=== PATIENT | female | born 1990 | race Caucasian/White ===

== ENCOUNTER 2024-12-10 12:16 | Emergency (ER) | payer BC, SELFPAY ==
--- OUTSIDE RECORDS SUMMARY | 2024-12-10 12:26 | XMS_ITS | Clinical Summary ---
Author Organization [facility] de Address [address] [place] [address] Phone Care Team Providers Care High Pressure Boiler Operator Name Role Phone Estrella Jones MD Primary Care Provider [phone] Allergies Active Allergy Reactions Criticality Noted Date Comments Loratadine Hives High 07/03/2015 Morphine Hives,Itching,Rash High 10/02/2019 Medications FLUoxetine (PROzac) 40 mg capsule Take 40 mg by mouth daily. 08/30/2021 Active multivitamin (DAILY-DAVE) tablet Take 1 Tablet by mouth daily. Active ferrous sulfate 325 mg (65 mg iron) tablet Take 65 mg by mouth daily. Active topiramate (Topamax) 25 mg tabletIndication s:Class 1 obesity due to excess calories with body mass index (BMI) of 33.0 to 33.9 in adult, unspecified whether serious comorbidity present,Dietary iron deficiency without anemia,Status post gastric bypass for obesity,Medicati on management Take 1 Tablet (25 mg) by mouth 2 times daily. 60 Tablet 5 08/08/2024 Active phentermine (ADIPEX P) 37.5 mg tabletIndication s:Dietary iron deficiency without anemia,Intestina l malabsorption, unspecified type Take 1 Tablet (37.5 mg) by mouth daily before breakfast. 30 Tablet 5 08/08/2024 Active Active Problems Problem Noted Date Diagnosed Date Dietary iron deficiency without anemia 3 Gastric bypass status for obesity 03/17/2022 Morbid obesity with body mass index of 40.0-49.9 03/10/2022 Psychological factor affecting physical conditio n 10/05/2021 Other specified eating disorder 10/05/2021 Intractable migraine with aura without status mi grainosus 08/14/2015 Encounters Date Type Department Care Team Description 12/04/2024 External Device Data [facility] ABSTRACTION Provider, Abstract 11/19/2024 External Device Data [facility] ABSTRACTION Provider, Abstract 11/07/2024 External Device Data [facility] ABSTRACTION Provider, Abstract 11/06/2024 External Device Data [facility]STRA[facility] Provider, Abstract 10/22/2024 External Device Data [facility] ABSTRACTION Provider, Abstract from Last 3 Months Social History Tobacco Use Types Packs/Day Years Used Date Smoking Tobacco: Former Tobacco Cessation:Counseling Given: No Alcohol Use Standard Drinks/Week Comments Not Currently 0 (1 standard drink = 0.6 oz pur e alcohol) Comments No Sex and Gender Information Value Date Recorded Sex Assigned at Not on file Legal Sex Female 8:54 AM INSTRUCTOR MILITARY SCIENCE Gender Identity Not on file Sexual Orientation Not on file Last Filed Vital Signs Vital Sign Reading Time Taken Comments Blood Pressure 130/82 08/08/2024 1:13 PM INSTRUCTOR MILITARY [employer]ENCE Pulse 74 08/08/2024 1:13 PM INSTRUCTOR MILITARY SCIENCE Temperature 37 C (98.6 F) 02/05/2024 8:10 AM CDT Respiratory Rate 16 08/08/2024 1:13 PM INSTRUCTOR MILITARY SCIENCE Oxygen Saturation 97% 08/08/2024 1:13 PM INSTRUCTOR MILITARY SCIENCE Inhaled Oxygen Concentration - - Weight 92.1 kg (203 lb) 08/08/2024 1:13 PM INSTRUCTOR MILITARY SCIENCE Height 165.1 cm (5' 5 ) 08/08/2024 1:13 PM INSTRUCTOR MILITARY SCIENCE Body Mass Index 33.78 08/08/2024 1:13 PM INSTRUCTOR MILITARY SCIENCE Plan of Treatment Upcoming Encounters Date Type Department Care Team (Late st Contact Info) Description 02/10/2025 11:00 AM CDT [facility] 1967 [facility] [address] [place] [phone] Td Garcia FNP 1967 [facility] [address] [place] [address] Health Maintenance Due Date Last Done Comments Pre-Diabetes and Diabetes Screening 1988 DTAP/TDAP/TD VACCINES (1 - Tdap) 09/01/2007 HEPATITIS B VACCINES (1 of 3 - 19+ 3-dose series) 09/01/2007 HPV/Cotest (21-29) 2009 CERVICAL CANCER SCREENING 2018 HPV/Cotest (30-65) 2018 PAP SMEAR 2018 INFLUENZA VACCINE (#1) 2024 , 03/30/2018, 06/19/2016, Additional history exists COVID-19 Vaccine (2 - 2023- season) 2024 09/25/2020 HPV VACCINES Aged Out No longer eligi ble based on patient's age to complete this topic Insurance [facility] [id number] [address] [id number] Advance Directives For more information, please contact: [phone] * Full Code (Latest Code Status on File) Date Activated Date Inactivated Comments 03/09/2022 2:37 PM 03/10/2022 12:58 PM * Full Code Date Activated Date Inactivated Comments 03/09/2022 12:03 PM 03/09/2022 2:37 PM * Full Code Date Activated Date Inactivated Comments 03/09/2022 9:07 AM 03/09/2022 12:03 PM Care Teams High Pressure Boiler Operator Relationship Specialty Start Date End Date Estrella Jones MD [address] [place] [address] PCP - General Family Practice 07/03/15
--- OUTSIDE RECORDS SUMMARY | 2024-12-10 12:26 | XMS_ITS | Clinical Summary ---
Author Organization [facility] de Address [address] [place] [address] Phone Care Team Providers Care Curtain Cleaner Name Role Phone Estrella Jones MD Primary Care Provider [phone] Allergies Active Allergy Reactions Criticality Noted Date Comments Loratadine Hives High 07/03/2015 Medications omeprazole (PRILOSEC) 20 mg Capsule, Delayed Release(E.C.) Take 20 mg by mouth daily. Active norgestimate-e thinyl estradiol (ORTHO TRI-CYCLEN) 0.18/0.215/0.2 5 mg-35 mcg (28) tablet Take 1 Tablet by mouth daily. Active rizatriptan (MAXALT) 10 mg Tablet Take 1 Tablet (10 mg) by mouth see administration instructions. 9 Tablet 3 6 Active escitalopram oxalate (LEXAPRO) 20 mg tablet 6 Active topiramate (TOPAMAX) 50 mg tablet Take 1 Tablet (50 mg) by mouth 2 times daily. 60 Tablet 11 6 Active Active Problems Problem Noted Date Diagnosed Date Intractable migraine with aura without status mi grainosus 08/14/2015 Social History Tobacco Use Types Packs/Day Years Used Date Smoking Tobacco: Former Cigarettes Alcohol Use Standard Drinks/Week Comments Not Asked 0 (1 standard drink = 0.6 oz pur e alcohol) Comments No Sex and Gender Information Value Date Recorded Sex Assigned at Not on file Legal Sex Female 2:33 PM ELECTRONIC ENGRAVER Gender Identity Not on file Sexual Orientation Not on file Last Filed Vital Signs Vital Sign Reading Time Taken Comments Blood Pressure 120/77 05/18/2016 10:10 AM ELECTRONIC ENGRAVER Pulse 81 05/18/2016 10:10 AM ELECTRONIC ENGRAVER Temperature - - Respiratory Rate - - Oxygen Saturation - - Inhaled Oxygen Concentration - - Weight 134.7 kg (297 lb) 05/18/2016 10:10 AM ELECTRONIC ENGRAVER Height 165.1 cm (5' 5 ) 05/18/2016 10:10 AM ELECTRONIC ENGRAVER Body Mass Index 49.42 05/18/2016 10:10 AM ELECTRONIC ENGRAVER Plan of Treatment Health Maintenance Due Date Last Done Comments DTAP/TDAP/TD VACCINES (1 - Tdap) 09/01/2007 HEPATITIS B VACCINES (1 of 3 - 19+ 3-dose series) 09/01/2007 HPV/Cotest (21-29) 2009 CERVICAL CANCER SCREENING 2018 HPV/Cotest (30-65) 2018 PAP SMEAR 2018 INFLUENZA VACCINE (#1) 2024 HPV VACCINES Aged Out No longer eligi ble based on patient's age to complete this topic Insurance [address] [place] [id number] [place] [address] Care Teams Curtain Cleaner Relationship Specialty Start Date End Date Estrella Jones MD [address] [place] [address] PCP - General Family Practice 07/03/15
--- OUTSIDE RECORDS SUMMARY | 2024-12-10 12:26 | XMS_ITS | Encounter Summary ---
Author Organization [facility] Address [address] [place] [address] Care Team Providers Care Nurse Practitioner Per Diem Name Role Phone Estrella Jones MD Primary Care Provider [phone] Encounter Details Date Type Department Care Team (Late st Contact Info) Description 12/04/2024 External Device Data [facility] Provider, Abstract NO ADDRESS ON FILE Social History Tobacco Use Types Packs/Day Years Used Date Smoking Tobacco: Former Alcohol Use Standard Drinks/Week Comments Not Currently 0 (1 standard drink = 0.6 oz pur e alcohol) Comments No Sex and Gender Information Value Date Recorded Sex Assigned at Not on file Legal Sex Female 8:54 AM PHYSICAL THERAPIST CLINIC DIRECTOR Gender Identity Not on file Sexual Orientation Not on file documented as of this encounter Plan of Treatment Upcoming Encounters Date Type Department Care Team (Late st Contact Info) Description 02/10/2025 11:00 AM CDT [facility] [address] [place] [phone] Td Garcia FNP 1967 [facility] [address] [place] [phone] documented as of this encounter Visit Diagnoses Not on filedocumented in this encounter Care Teams Nurse Practitioner Per Diem Relationship Specialty Start Date End Date Estrella Jones MD [address] [place] [address] PCP - General Family Practice 07/03/15 documented as of this encounter
--- OUTSIDE RECORDS SUMMARY | 2024-12-10 12:26 | XMS_ITS | Continuity of Care Document ---
Author Organization [facility] [place], Tina, [facility] ([facility]) Address [address] [facility] [place] [address] Assessment No assessment recorded. Plan of Treatment Reminders Order Date Submit Date Provider Last Modified By Organization Details Last Modified Time Details Appointments ACUTE VISIT 025 11:40AM WALK-IN Not available Not available Not available Lab None recorde d. Referral None recorde d. Procedures None recorde d. Surgeries None recorde d. Imaging None recorde d. Medication Orders None recorde d. Patient TargetsNo targets recorded. Patient InstructionsNo instructions recorded. Reason for Referral None Reported. Problems Name Problem SNOMED Code Status Onset Date Resolution Date Notes Provider Name and Address Organization Details Recorded Time Miscarriage 41184697 Active 2022 miscarr iage- Mar 2009; 023 2:40PM by Ramiro Foreman, Office Visit; Promote d; acuity set as *; GIANFRANCO fitzpatrick [facility].L.CMonserrat 5 11:28:38 Depressive disorder 90647242 Active 2023 GIANFRANCO fitzpatrick [facility] L.L.CMonserrat 5 11:28:31 Vaginal fistula finding 009375675 Active 2023 GIANFRANCO fitzpatrick [facility] L.L.CMonserrat 4 08:20:14 Seasonal allergic rhinitis 374606770 Active 2023 GIANFRANCO fitzpatrick [facility], [facility].LMonserratCMonserrat 4 08:20:25 Gastroesophag eal reflux disease 714384252 Active 2023 GIANFRANCO SARAHY [facility] 08:20:32 Anemia 698567872 Active 2023 GIANFRANCO REID [facility] 4 08:20:40 Obesity 939953179 Active 2023 GIANFRANCO REID [facility]CMons[facility] 4 08:20:49 Migraine 90204217 Active 2023 GIANFRANCO REID [facility] 4 08:20:58 Problem Notes None recorded. Procedures Surgical History Date Name Laterality Status Provider Name and Address Organization Details Recorded Time 03/29/20 21 sampling of cervix for Papanicolaou smear completed [facility] 12/13/2023 08:21:57 delivery completed [facility] 12/13/2023 08:21:22 Gastric bypass for obesity completed [facility] 12/13/2023 08:22:08 Imaging Results None recorded. Procedure Notes None recorded. Medical Equipment None Reported. Allergies Allergen ID Allergen Name Allergen Category Reaction Reaction Severity Criticality Documentation Date Start Date Code Code System Note Provider Name and Address Organization Details Recorded Time 02816 Claritin- D medicatio n hives Not available Not available 01/14/2023 64574 UNK React ion: Hives ; Comme nt: Recor ded 08/24 2:40P M by Phan Foreman Offic e Visit ; Promo augustus; Yamilka ibrahim ce: *; ; Not Available [employer] 3 02:24:59 Medications Name Sig Start Date Stop Date Status Note LastModified by Organization Details LastModified Time fluoxetin e 40 mg capsule TAKE 1 CAPSULE BY MOUTH AT BEDTIME active Not Available Not Available No t Available topiramat e 25 mg tablet TAKE 1 TABLET BY MOUTH TWICE DAILY active Not Available Not Available No t Available phentermi ne 37.5 mg tablet TAKE 1 TABLET BY MOUTH ONCE DAILY BEFORE BREAKFAS T active Bariilda Downs Not Available Not Available Not Available fluoxetin e at bedtime 12/12 completed LB/ak; Recorded 08/25/19 2:42PM by Ramiro Foreman, Office Visit; Refill Quantity : 90; Capsule; Not Available Not Available Not Available Multivita mins daily active 0; Recorded 08/25/19 2:40PM by Ramiro Foreman, Office Visit; Not Available Not Available Not Available Calcium + D active 0; Recorded 08/25/19 2:40PM by Ramiro Foreman, Office Visit; Not Available Not Available Not Available Vitals Date Recorded Body height Body mass index (BMI) Body weight Respiratory rate Oxygen saturation Oxygen saturation in Arterial blood by Pulse oximetry Heart rate Body temperature Systolic blood pressure Diastolic blood pressure Provider Name and Address Organization Details Last Updated DateTime 162.56 cm 32.1 kg/m2 48474.1 7 g 19 /min 97 % 97 % 88 /min 97.8 [degF] 104 mm[Hg] 68 mm[Hg] DELMIS RESTREPO [facility] 12:57:44 Social History Question Answer Notes LastModified by Organizat ion Details LastModified Time Tobacco Smoking Status Former Smoker DELMIS KAYE [facility] 12/10/2024 12:58:51 When Did You Quit Smoking? 16+yearssinc elastcigaret te [email or web address] Information not available 12/10/2024 What Was The Date Of Your Most Recent Tobacco Screening? 12/10/2024 [email or web address] Information not available 12/10/2024 Sex: Unknown Functional Status None recorded. Mental Status None recorded. Family History Relationship Description Onset Age of this Age Resolved Age Notes LastModified by Organization Details LastModified Time Father Hypertensive disorder Not available 11/18 16:32:49 Father Malignant neoplasm of liver [email or web address] Not available 11/18 16:33:02 Father Hypercholest erolemia [email or web address] Not available 11/18 16:33:11 Father Diabetes mellitus [email or web address] Not available 11/18 16:33:25 Father Depressive disorder [email or web address] Not available 11/18 16:33:55 Mother Hypertensive disorder Not available 11/18 16:32:49 Mother Diabetes mellitus [email or web address] Not available 11/18 16:33:25 Mother Bipolar disorder [email or web address] Not available 11/18 16:33:44 Mother Depressive disorder [email or web address] Not available 11/18 16:33:55 Medical History Condition Response Coronary Artery Disease N Other N Gout N Kidney Stones N Blood Diseases N Hyperthyroidism N Breast Cancer N Blood Transfusion N Depression Y COPD N Lung Disease N Hypothyroidism N Developmental or Behavioral Disorders N Defects or Inherited Disease N Breast Problem N Difficulty Swallowing N Anesthesia Complications N Meniere's disease N Anxiety Disorder N Muscle, Joint, or Bone Problems N Vision or Eye Problems N Arthritis N Polyps N Infertility N Cancer N Varicosities N Stroke N Endometriosis N Bladder or Kidney Problems N High Cholesterol N Liver Disease N Headaches Y Fibromyalgia N Kidney Disease N Allergies/Hayfever Y Heart Problems N Ear or Hearing Problems N Hospitalizations N Thyroid Problems N GI Problems N ADD/ADHD N Skin Problems N Eating Disorder N Anemia Y Constipation N Mental Illness N Ovarian Cancer N Diabetes N Bedwetting N Seizures/Epilepsy N Tuberculosis N Eczema N Diverticulitis N Abuse/Domestic Violence N Asthma N Reflux/GERD Y Hepatitis N Heart Disease N Pulmonary Embolism N Pre-Eclampsia N Hypertension N Chronic Ear Infections N Osteoporosis N Chicken Pox N Autism Spectrum Disorder (ASD) N Thrombophilias N Gynecological HistoryNo gynecological history recorded. Obstetrics History GPAL:G 3 P 2 0 1 2 Type Value Full Term 2 Spontaneous 1 Living 2 Total 3 Immunizations Vaccine Type Date Status Note Provider Nam e and Address Organization Details Recorded Time Influenza, split virus, trivalent, preservative 0 completed Not Available [facility] 01/14/2023 02:43:46 Influenza, split virus, trivalent, preservative 8 completed Not Available [facility] 01/14/2023 02:43:46 Influenza, split virus, trivalent, preservative 7 completed Not Available [facility] 01/14/2023 02:43:46 COVID-19 vaccine, vector-nr, [id number], PF, 0.5 mL 1 completed GIANFRANCO fitzpatrick, [facility] 12/13/2023 16:31:30 Hep A, ped/adol, 2 dose 8 completed GIANFRANCO fitzpatrick, [facility] 12/13/2023 16:31:30 Hep A, ped/adol, 2 dose 8 completed GIANFRANCO fitzpatrick, [facility] 12/13/2023 16:31:30 tetanus toxoid, adsorbed 4 completed GIANFRANCO fitzpatrick, [facility] 12/13/2023 16:31:30 Past Encounters Encounter ID Performer Location Encounter Start Date Encounter Closed Date Diagnosis/Indication Diagnosis SNOMED-CT Code Diagnosis ICD10 Code Diagnosis Note [id number] MARCELLA GARNICA [facility] ([facility]) [address] [place] [address] 12/10/2024 12:47:14 12/10/2024 13:15:26 Acute abdominal pain 342816452 R10.9 sent to ER for further evaluation and treatment. Report called to ER staff per Anahi LÓPEZ. Health Concerns Section Related Observation LastModified by Organization Detai ls LastModified Time None Recorded Concern Status LastModified by Organization Details LastModified Time None Recorded Payers Encounter Date Sequence Insurance Name Policy Number Policy Alex Covered Member ID Alex Member ID Guarantor Name 12/10/2024 1 [employer] [place] [id number] Elizabethdash Fischer Peck [id number] Will Peck Notes Date Note Type Note Provider Name and Address Organization Details Recorded Time 12/10/2024 text/html Abdominal PainReported bypatient.Location :[facility] Quality:cramping;s harp Severity:moderate; worse Duration:constant Onset/Timing:acute ; sudden Aggravating Factors:eating and drinking Associated Symptoms:fever;chi lls;diarrhea Patient states Monday she had a headache, abdominal pain and slight fever. She has continued to have horrible abdominal pain in her right upper quadrant with diarrhea. She's unable to eat or drink. She has history of gastric bypass surgery in 2020 and was told if she had persistant stomach pain to make sure it's not her gallbladder. JOSEFINA VALERIO, [facility] [place], [address], [facility], Tina 12/10/2024 13:15:25 OBGyn Episode No OBEpisode recorded.
--- OUTSIDE RECORDS SUMMARY | 2024-12-10 12:26 | XMS_ITS | Data Portability ---
Author Organization RASHEEDA Don Gomez [facility], ED[facility] Address [address] [place] [id number] Assessment No assessment recorded. Plan of Treatment Reminders Order Date Submit Date Provider Last Modified By Organization Details Last Modified Time Details Appointments ACUTE VISIT 2024 11:40A M WALK-IN Not available Not available Not available Lab TSH, serum or plasma 2023 024 [facility] ([facility]), [address] [place], [address], 05/01/2024 14:21:51 HbA1c (hemoglob in A1c), blood 2023 024 [facility] ([facility]), [address] [place], [address], 05/02/2024 12:42:07 CMP, serum or plasma 2023 024 [place] [facility], [address], [facility] 1, [place], [address], 05/01/2024 13:30:21 lipid panel, blood 2023 024 [place] [facility], [address], [facility] 1, [place], [address], 05/01/2024 13:30:24 CBC 2023 024 [facility], [address], [facility] [place], [address], 05/01/2024 12:44:44 Referral None recorded. Procedures None recorded. Surgeries None recorded. Imaging None recorded. Medication Orders fluoxetin e 40 mg capsule 2024 025 [email or web address] [facility], [address], [place], [address], 09/12/2024 13:33:59 fluoxetin e 40 mg capsule 2023 024 0 [facility], [address], [place], [address], 09/11/2024 11:28:09 Patient TargetsNo targets recorded. Patient InstructionsNo instructions recorded. Reason for Referral None Reported. Results Created Date Observation Date Name Description Value Unit Range Abnormal Flag Note LastModifiedBy Organization Detail LastModifiedTime 05/01/2005/01/2024 CBC WBC 4.8 x10 4.0-10 .5 Not Available [facility] [address], [place], [address], 05/01/2024 12:44:44 05/01/2005/01/2024 CBC RBC 4.92 x10 3.50-5 .50 Not Available [facility] [address], [place], [address], 05/01/2024 12:44:44 05/01/2005/01/2024 CBC HGB 13.0 g/dL 12.0-1 6.0 Not Available [facility] [address], [place], [address], 05/01/2024 12:44:44 05/01/2005/01/2024 CBC HCT 39.3 % 37.0-4 7.0 Not Available [facility] [address], [place], [address], 05/01/2024 12:44:44 05/01/2005/01/2024 CBC MCV 79.8 fL 80.0-9 9.9 low Not Available [facility] [address] [facility] 1, [place], [address], 05/01/2024 12:44:44 05/01/2005/01/2024 CBC MCH 26.4 pg 27.0-3 2.0 low Not Available [facility] [address] [facility] 1, [place], [address], 05/01/2024 12:44:44 05/01/2005/01/2024 CBC MCHC 33.0 g/dL 32.0-3 6.0 Not Available [facility] [address] [facility], [place], [address], 05/01/2024 12:44:44 05/01/2005/01/2024 CBC RDW 15.2 % 11.5-1 4.5 high Not Available [facility] [address] [facility] 1, [place], [address], 05/01/2024 12:44:44 05/01/2005/01/2024 CBC plt 262.0 x10 140.0- 451.0 Not Available [facility] [address] [facility] 1, [place], [address], 05/01/2024 12:44:44 05/01/2005/01/2024 CBC lymphocytes % 34.7 % 20.0-5 0.0 Not Available [facility] [address] [facility] 1, [place], [address], 05/01/2024 12:44:44 05/01/2005/01/2024 CBC granulcytes % 56.0 % 30.0-7 0.0 Not Available [facility] [address] [facility] 1, [place], [address], 05/01/2024 12:44:44 05/01/2005/01/2024 CBC monocytes % 6.5 % 2.0-16 .0 Not Available [facility] [address] [facility] 1, [place], [address], 05/01/2024 12:44:44 05/01/20 24 05/01/2024 CBC granulcytes# 2.7 x10 Not Maite ilable [facility] [address] [facility] 1, [place], [address], 05/01/2024 12:44:44 05/01/2005/01/2024 CBC lymphocytes # 1.7 x10 Not Available [facility] [address] [facility] 1, [place], [address], 05/01/2024 12:44:44 05/01/2005/01/2024 CBC monocytes # 0.3 x10 Not Avai lable [facility] [address] [facility] 1, [place], [address], 05/01/2024 12:44:44 05/01/20 24 05/01/2024 CMP (FEMA LE) glucose 82.0 mg/dL 60.0-9 9.0 Not Available [facility] [address] [facility] 1, [place], [address], 05/01/2024 13:30:21 05/01/20 24 05/01/2024 CMP (FEMA LE) BUN (blood urea nitrogen) 8.0 mg/dL 10.0-2 6.0 low Not Available [facility] [address] [facility] 1, [place], [address], 05/01/2024 13:30:21 05/01/20 24 05/01/2024 CMP (FEMA LE) creatinine (serum) 0.6 mg/dL 0.4-1. 5 Not Available [facility] [address] [facility], [place], [address], 05/01/2024 13:30:21 05/01/20 24 05/01/2024 CMP (FEMA LE) BUN/creatini ne ratio 14.29 ratio Not Available [facility] [address] [facility], [place], [address], 05/01/2024 13:30:21 05/01/20 24 05/01/2024 CMP (FEMA LE) eGFR calculated 130.9 Not Available [facility] [address] [facility] 1, [place], [address], 05/01/2024 13:30:21 05/01/20 24 05/01/2024 CMP (FEMA LE) total protein 7.5 g/dL 6.0-8. 5 Not Available [facility] [address] [facility] 1, [place], [address], 05/01/2024 13:30:21 05/01/20 24 05/01/2024 CMP (FEMA LE) total bilirubin 0.5 mg/dL 0.2-1. 3 Not Available [facility] [address] [facility] 1, [place], [address], 05/01/2024 13:30:21 05/01/20 24 05/01/2024 CMP (FEMA LE) albumin 4.9 g/dL 3.5-5. 5 Not Available [facility] [address] [facility] 1, [place], [address], 05/01/2024 13:30:21 05/01/20 24 05/01/2024 CMP (FEMA LE) globulin 2.6 calc Not Available [facility] [address] [facility] 1, [place], [address], 05/01/2024 13:30:21 05/01/20 24 05/01/2024 CMP (FEMA LE) AST (SGOT) 26.0 U/L 0.0-46 .0 Not Available [facility] [address] [facility] 1, [place], [address], 05/01/2024 13:30:21 05/01/20 24 05/01/2024 CMP (FEMA LE) altv (SGPT) 19.0 U/L 13.0-6 9.0 normal Not Available [facility] [address] [facility] 1, [place], [address], 05/01/2024 13:30:21 05/01/20 24 05/01/2024 CMP (FEMA LE) A/G ratio 1.[address] [facility] [address] [facility] 1, [place], [address], 05/01/2024 13:30:21 05/01/20 24 05/01/2024 CMP (FEMA LE) ALP phos 58.0 U/L 30.0-1 40.0 normal Not Available [facility] [address] [facility] 1, [place], [address], 05/01/2024 13:30:21 05/01/20 24 05/01/2024 CMP (FEMA LE) calcium 9.7 mg/dL 8.4-10 .5 Not Available [facility] [address] [facility] 1, [place], [address], 05/01/2024 13:30:21 05/01/20 24 05/01/2024 CMP (FEMA LE) sodium 140.0 mmol/ L 136.0- 145.0 Not Available [facility] [address] [facility] 1, [place], [address], 05/01/2024 13:30:21 05/01/20 24 05/01/2024 CMP (FEMA LE) potassium 4.3 mmol/ L 3.5-5. 1 Not Available [facility] [address] [facility], [place], [address], 05/01/2024 13:30:21 05/01/20 24 05/01/2024 CMP (FEMA LE) chloride 103.0 mmol/ L 98.0-1 10.0 normal Not Available [facility] [address] [facility], [place], [address], 05/01/2024 13:30:21 05/01/20 24 05/01/2024 CMP (FEMA LE) C02 27.0 mmol/ L 22.0-3 1.0 Not Available [facility] [address] [facility], [place], [address], 05/01/2024 13:30:21 05/01/20 24 05/01/2024 CMP (FEMA LE) anion gap 10.0 calc Not Available [facility] [address] [facility] 1, [place], [address], 05/01/2024 13:30:21 05/01/20 24 05/01/2024 CMP (FEMA LE) osmolality 286.8 calc Not Available [facility] [address] [facility] 1, [place], [address], 05/01/2024 13:30:21 05/01/20 24 05/01/2024 LIPID PROFI LE (FEMA LE) cholesterol 172.0 mg/dL 0.0-20 0.0 Not Available [facility] [address] [facility], [place], [address], 05/01/2024 13:30:24 05/01/20 24 05/01/2024 LIPID PROFI LE (FEMA LE) trig 64.0 mg/dL 0.0-15 0.0 Not Available [facility] [address] [facility] 1, [place], [address], 05/01/2024 13:30:24 05/01/20 24 05/01/2024 LIPID PROFI LE (FEMA LE) HDL - direct 101.0 mg/dL >40.0 Not Available [facility] [address] [facility] 1, [place], [address], 05/01/2024 13:30:24 05/01/20 24 05/01/2024 LIPID PROFI LE (FEMA LE) VLDL - direct 12.8 mg/dL Not Available [facility] [address] [facility] 1, [place], [address], 05/01/2024 13:30:24 05/01/20 24 05/01/2024 LIPID PROFI LE (FEMA LE) LDL - direct 58.2 mg/dL 0.0-13 0.0 Not Available [facility] [address] [facility] 1, [place], [address], 05/01/2024 13:30:24 05/01/20 24 05/01/2024 TSH, serum or plasm a TSH 0.87 uIU/m L 0.49-3 .82 normal Not Available [facility] ([facility]) [address] [place] [address], [address], 05/01/2024 12:11:21 05/02/20 24 05/02/2024 HbA1c (hemo globi n A1c), blood HbA1c 5.0 Not Available [facility] ([facility]) [address] [place] [address], [address], 05/01/2024 12:11:22 Result Notes None recorded. Problems Name Problem SNOMED Code Status Onset Date Resolution Date Notes Provider Name and Address Organization Details Recorded Time Miscarriage 14542963 Active 2022 miscarr iage- Mar 2009; 023 2:40PM by Ramiro Foreman, Office Visit; Promote d; acuity set as *; [facility] 11:28:38 Depressive disorder 58787090 Active 2023 [facility] 11:28:31 Vaginal fistula finding 034489481 Active 2023 GIANFRANCO REID [facility] 4 08:20:14 Seasonal allergic rhinitis 071016581 Active 2023 [facility] 08:20:25 Gastroesophag eal reflux disease 817416046 Active 2023 [facility] 4 08:20:32 Anemia 716269009 Active 2023 GIANFRANCO REID [facility] 4 08:20:40 Obesity 886230242 Active 2023 [facility] 4 08:20:49 Migraine 74740100 Active 2023 GIANFRANCO REID [facility] 4 08:20:58 Problem Notes None recorded. Procedures Surgical History Date Name Laterality Status Provider Name and Address Organization Details Recorded Time 03/29/20 21 sampling of cervix for Papanicolaou smear completed GIANFRANCO REID [facility] 12/13/2023 08:21:57 delivery completed [facility]FRANCO REID [facility] 12/13/2023 08:21:22 Gastric bypass for obesity completed GIANFRANCO REID [facility] 12/13/2023 08:22:08 Imaging Results None recorded. Procedure Notes None recorded. Medical Equipment None Reported. Allergies Allergen ID Allergen Name Allergen Category Reaction Reaction Severity Criticality Documentation Date Start Date Code Code System Note Provider Name and Address Organization Details Recorded Time 75483 Claritin- D medicatio n hives Not available Not available 01/14/2023 55209 UNK React ion: Hives ; Comme nt: Recor ded 08/24 2:40P M by Phan Foreman, Offic e Visit ; Sondra coffman; Yamilka ibrahim ce: *; ; Not Available [facility] 3 02:24:59 Medications Name Sig Start Date [...] MOUTH ONCE DAILY BEFORE BREAKFAS T active Marc Downs Not Available Not Available Not Available [...] height Body mass index (BMI) Body weight Body temperature Oxygen saturation Oxygen saturation in Arterial blood by Pulse oximetry Heart rate Systolic blood pressure Diastolic blood pressure Provider Name and Address Organization Details Last Updated DateTime 5 162.56 cm 33.5 kg/m2 33411.5 1 g 98.6 [degF] 99 % 99 % 78 /min 115 mm[Hg] 70 mm[Hg] [facility]CO [facility] 5 11:26:38 Date Recorded Body height Body mass index (BMI) Body weight Respiratory rate Oxygen saturation Oxygen saturation in Arterial blood by Pulse oximetry Heart rate Body temperature Systolic blood pressure Diastolic blood pressure Provider Name and Address Organization Details Last Updated DateTime 5 162.56 cm 32.1 kg/m2 88048.1 7 g 19 /min 97 % 97 % 88 /min 97.8 [degF] 104 mm[Hg] 68 mm[Hg] DELMIS RESTREPO [facility] 5 12:57:44 Date Recorded Body weight Body temperature Oxygen saturation Oxygen saturation in Arterial blood by Pulse oximetry Heart rate Systolic blood pressure Diastolic blood pressure Provider Name and Address Organization Details Last Updated DateTime 4 15823.4 4 g 98.2 [degF] 98 % 98 % 71 /min 90 mm[Hg] 60 mm[Hg] GIANFRANCO REID [facility] 4 16:31:18 Date Recorded Body height Body mass index (BMI) Body weight Oxygen saturation Oxygen saturation in Arterial blood by Pulse oximetry Heart rate Systolic blood pressure Diastolic blood pressure Provider Name and Address Organization Details Last Updated DateTime 4 162.56 cm 34.7 kg/m2 72380.6 6 g 97 % 97 % 65 /min 120 mm[Hg] 80 mm[Hg] GIANFRANCO REID [facility] 4 16:24:35 Social History Question Answer Notes LastModified by Organizat ion Details LastModified Time Tobacco Smoking Status Former Smoker DELMIS RESTREPO [facility] 12/10/2024 12:58:51 When Did You Quit Smoking? 16+yearssinc elastcigaret te [email or web address] Information not available 12/10/2024 What Was The Date Of Your Most Recent Tobacco Screening? 12/10/2024 Information not available 12/10/2024 Sex: Unknown Functional Status None recorded. Mental Status None recorded. Family History Relationship Description Onset Age of this Age Resolved Age Notes LastModified by Organization Details LastModified Time Father Hypertensive disorder [email or web address] Not available 11/18 16:32:49 Father Malignant neoplasm of liver [email or web address] Not available 11/18 16:33:02 Father Hypercholest erolemia [email or web address] Not available 11/18 16:33:11 Father Diabetes mellitus [email or web address] Not available 11/18 16:33:25 Father Depressive disorder [email or web address] Not available 11/18 16:33:55 Mother Hypertensive disorder [email or web address] Not available 11/18 16:32:49 Mother Diabetes mellitus [email or web address] Not available 11/18 16:33:25 Mother Bipolar disorder [email or web address] Not available 11/18 16:33:44 Mother Depressive disorder [email or web address] Not available 11/18 16:33:55 Medical History Condition Response Coronary Artery Disease N Other N Gout N Kidney Stones N Blood Diseases N Hyperthyroidism N Breast Cancer N Blood Transfusion N Depression Y Hypothyroidism N Lung Disease N COPD N Developmental or Behavioral Disorders N Defects or Inherited Disease N Breast Problem N Difficulty Swallowing N Anesthesia Complications N Anxiety Disorder N Meniere's disease N Muscle, Joint, or Bone Problems N Vision or Eye Problems N Arthritis N Infertility N Polyps N Cancer N Stroke N Varicosities N Endometriosis N Bladder or Kidney Problems N High Cholesterol N Liver Disease N Fibromyalgia N Headaches Y Kidney Disease N Allergies/Hayfever Y Heart Problems [...] virus, trivalent, preservative 0 completed Not Available Pending sale to [facility] 01/14/2023 02:43:46 Influenza, split virus, trivalent, preservative 8 completed Not Available Pending sale to [facility] 01/14/2023 02:43:46 Influenza, split virus, trivalent, preservative 7 completed Not Available Pending sale to [facility] 01/14/2023 02:43:46 COVID-19 vaccine, vector-nr, rS-Ad26, PF, 0.5 mL 1 completed GIANFRANCO fitzpatrick, [facility] 12/13/2023 16:31:30 Hep A, ped/adol, 2 dose 8 completed GIANFRANCO fitzpatrick, [facility] 12/13/2023 16:31:30 Hep A, ped/adol, 2 dose 8 completed GIANFRANCO fitzpatrick, [facility] 12/13/2023 16:31:30 tetanus toxoid, adsorbed 4 completed GIANFRANCO fitzpatrick, [facility] 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 [id number] Estrella Jones MD [facility] ([facility]) [address] [place] [address] 05/01/2024 11:09:41 05/01/2024 14:10:43 Adult health examination 772745355 Z00.00 [id number] MARCELLA VALENZUELA [facility] ([facility]) [address] [place] [address] 05/02/2024 16:14:34 05/06/2024 15:50:12 [id number] Estrella Jones MD [facility] ([facility]) [address] [place] [address] 09/11/2024 11:19:05 09/13/2024 07:09:01 Adult health examination 135193466 Z00.00 Mixed anxi ety and depressive disorder 847862647 F41.8 controlled . Continue same 09/11/2024 Serum iron below reference range 889011195 R79.0 Patient states she has been needing iron infusions. She has been getting these through her bariatric surgeon but it is harder to get them done locally at [facility]. I suggested she bring her lab results and order with her and we can see if it might be possible to order them through our office. 09/11/2024 Menorrhagia 336643870 N9 2.0 Patient states that she still has heavy periods and believes this contribute s a lot to her low iron. She would like to discuss surgical options like ablation or hysterecto my. She will check with her and her insurance and get back to us on if she would like a referral at this time. 08/22/2024 [id number] MARCELLA GARNICA [facility] ([facility]) [address] [place] [address] 12/10/2024 12:47:14 12/10/2024 13:15:26 Acute abdominal pain 192735716 R10.9 sent to ER for further evaluation and treatment. Report called to ER staff per Anahi LÓPEZ. Health Concerns Section Related Observation LastModified by Organization Detai ls LastModified Time None Recorded Concern Status LastModified by Organization Details LastModified Time None Recorded Advance Directives Directive None Recorded Payers Insurance Date Sequence Insurance Name Policy Number Policy Alex Covered Member ID Alex Member ID Guarantor Name 12/10/2024 1 [employer] [id number] Will Peck [id number] Will Peck Notes Date Note Type Note Provider Name and Address Organization Details Recorded Time 12/13/2023 text/html Annual WellnessReported bypatient.Diet and Nutrition:healthy diet Physical Activity:exercises on a regular basis Additional Lifestyle Factors:no tobacco use Depression Risk:history of depression she has lost 150 lbs Estrella Jones MD [address] [place] [address], [phone], [facility], Tina 12/16/2023 11:40:46 09/11/2024 text/html Annual WellnessReported bypatient.Diet and Nutrition:healthy diet Physical Activity:exercises on a regular basis Additional Lifestyle Factors:no tobacco use Depression Risk:never feels sad, empty, or tearful; no sleep disturbances or insomnia Hearing:no loss of hearing Estrella Jones MD [address] [place], [address], [facility], [place] 09/11/2024 13:07:33 12/10/2024 text/html Abdominal PainRe ported bypatient.Location:[facility] Quality:cramping;sharp Severity:moderate;wors e Duration:constant Onset/Timing:acute; sudden Aggravating Factors:eating and drinking Associated Symptoms:fever;chills; diarrhea Patient states Monday she had a headache, abdominal pain and slight fever. She has continued to have horrible abdominal pain in her right upper quadrant with diarrhea. She's unable to eat or drink. She has history of gastric bypass surgery in 2020 and was told if she had persistant stomach pain to make sure it's not her gallbladder. MARCELLA GARNICA [address] [place], [address], [facility], [place] 12/10/2024 13:15:25 OBGyn Episode No OBEpisode recorded.
[2024-12-10 12:29] VITALS: BP 120/83; PULSE 91; RESP 20; TEMP 36.8; O2SAT 97
[2024-12-10 13:09] LABS: Basophils % 0.6 %; Eosinophils # 0.1 10^3/uL (0.0-0.8); Eosinophils % 1.8 %; Hematocrit 39.3 % (36-47); Mean Corpuscular HGB Conc 30.5 g/dL (30-55); Mean Corpuscular Hemoglobin 23.8 pg (27-33); Mean Corpuscular Volume 77.8 fl (85-98); Mean Platelet Volume 9.7 fL (7.4-10.4); Monocytes # 0.7 10^3/uL (0.2-0.9); Monocytes % 12.9 %; Neutrophils # 3.54 10^3/uL (1.8-7.7); Neutrophils % 65.3 %; Nucleated Red Blood Cells % 0 %; Platelet Count 357 10^3/cmm (157-399); Red Blood Count 5.05 10^6/uL (3.85-5.65); Red Cell Distribution Width 13.9 % (12.1-15.1); White Blood Count 5.42 10^3/uL (3.29-11.43)
[2024-12-10 13:28] LABS: HCG, Serum Qual Negative (Negative)
[2024-12-10 13:29] LABS: Alanine Aminotransferase 15 U/L (0-33); Albumin Level 3.9 g/dL (3.5-5.2); Alkaline Phosphatase 69 U/L (35-105); Anion Gap 17.5 (5-19); Aspartate Amino Transferase 17 U/L (0-32); Blood Urea Nitrogen 8 mg/dL (6-20); Calcium 9.4 mg/dL (8.5-10.5); Carbon Dioxide 24 mmol/L (22-29); Chloride 101 mmol/L (98-107); Globulin 3.2 g/dL (1.3-4.6); Glomerular Filtration Rate 139.6 mL/min (90-130); Glucose 103 mg/dL (65-115); Lipase 25 U/L (13-60); Osmolality Calculated 287 mOsm/kg (285-295); Potassium 3.5 mmol/L (3.5-5.1); Sodium 139 mmol/L (136-145); Total Bilirubin 0.2 mg/dL (0.15-1.2); Total Protein 7.1 g/dL (6.6-8.7)
[2024-12-10 13:42] LABS: Bilirubin Urine Negative (Negative); Blood Urine 1+ (Negative); Glucose Urine UA Negative (Normal); Ketones Urine 2+ (Negative); Leukocyte Esterase Urine 2+ (Negative); Nitrate Urine Negative (Negative); Protein Urine Trace (Negative); Specific Gravity, Urine 1.029 (1.005-1.030); Urine Appearance Cloudy (CLEAR); Urine Color Yellow (Yellow)
[2024-12-10 13:48] LABS: Add Urine Microscopic? YES; Bacteria Urine 1+ /hpf; WBC Urine 51-100 /hpf (0-5)
[2024-12-10 13:52] LABS: Add Urine Culture? Yes
--- NOTE | 2024-12-10 14:38 | CT_ITS ---
WS: [id number] CT ABDOMEN AND PELVIS WITH CONTRAST HISTORY: abd pain TECHNIQUE: Imaging performed of the abdomen and pelvis with IV contrast. Single phase imaging of the abdomen. Coronal and sagittal reformats are submitted. All CT scans at [facility] use at least one of these dose optimization techniques: automated exposure control; mA and/or kV adjustment per patient size (includes targeted exams where dose is matched to clinical indication); or iterative reconstruction. IV CONTRAST: Omnipaque 350; 100 mL IV. Oral contrast: No DLP: 719.62 mGy.cm COMPARISON: None available. Lower thorax: Lung bases are clear. Heart is normal size. Surgical clips at the GE junction. Prior gastric bypass. Liver/biliary system: Normal size liver. Focal fatty sparing along the falciform ligament. No intrahepatic duct dilatation. Normal portal vein. Gallbladder: Minimally hydropic gallbladder. No wall thickening or adjacent edema. Pancreas: Normal size pancreas and pancreatic duct. No adjacent inflammation. Spleen: Normal size spleen. No mass or infarct. Adrenal glands: Normal. Right kidney: Normal. Left kidney: Nonobstructing lower pole calcification. No obstruction. Aorta: Normal. Lymphadenopathy: Numerous small enhancing mesenteric and RIGHT lower quadrant lymph nodes measuring up to 10 mm. Free fluid: None. GI tract: Nondistended stomach. No small bowel obstruction. The appendix is normal. Mucosal edema involving the ascending colon and hepatic flexure. There is a small amount of soft tissue inflammation adjacent to the ascending colon and including the appendix but the appendix is normal size. Abdominal wall: Tiny umbilical hernia contains fat. Pelvis: No free fluid or adenopathy within the pelvis. Bones: Bone island proximal LEFT femur. CT/CT abdomen pelvis w con* [id number] IMPRESSION: 1. Numerous small enhancing mesenteric lymph nodes, greatest distribution RIGH T lower quadrant consistent with mesenteric adenitis most likely. 2. Adjacent submucosal edema involving the ascending colon and hepatic flexure consistent with a mild colitis. 3. The adjacent appendix is normal. No free fluid. 4. Prior gastric bypass. 5. Gallbladder is top normal size diameter but there is no wall thickening or adjacent inflammation.
--- NOTE | 2024-12-10 14:40 | ED_ITS ---
HPI - Abdominal Pain 2 General: Chief Complaint: Abdominal Pain Stated Complaint: abd pain, n/d/f Time Seen by Provider: 12/10/24 14:31 Source: patient Mode of arrival: ambulatory Limitations: no limitations History of Present Illness: 34-year-old female who has had a history of gastric bypass surgery 4 years ago states that since Monday she has been having vomiting diarrhea along with some diffuse sharp abdominal pains. She states she is concerned it could be her gallbladder. She had some low-grade fevers denies any worse or improving factors. Rates her pain a 6 out of 10 currently Associated Symptoms: Reports diarrhea, nausea and vomiting; Denies chills, dysuria and fever(s) Related Data Previous Rx's ?Medication ?Instructions ?Recorded ciprofloxacin HCl 500 mg tablet 500 mg PO BID #14 tabs 12/10/24 (Cipro) hydrocodone 5 mg-acetaminophen 325 1 tab PO Q6H PRN pa in #14 tabs 12/10/24 mg tablet metronidazole 500 mg tablet 500 mg PO Q8H 7 days #21 t abs 12/10/24 ondansetron 4 mg disintegrating 4 mg PO Q6H PRN nausea and 12/10/24 tablet vomiting #14 tabs Allergies Allergy/AdvReac Type Severity Reaction Status Date / Time loratadine (From Claritin) Allergy Unknown Verified 12/10/24 12:31 morphine Allergy Unknown Verified 12/10/24 12:31 NSAIDS (Non-Steroidal Allergy Unknown Verified 12/10/24 12:31 Anti-Inflamma Review of Systems 2 Const: Denies: fever(s), chills, body aches or change in appetite ENMT: Denies: throat pain or dental pain Card: Denies: chest pain Resp: Denies: dyspnea GI: Reports: abdominal pain, nausea, vomiting and diarrhea : Denies: dysuria Musc: Denies: neck pain or back pain Skin/Breast: Denies: rash Neuro: Denies: headache(s) Physical Exam 2 Const: COMMON NORMALS: no acute distress, patient oriented x3 and healthy appearing HENMT: COMMON NORMALS: normocephalic and atraumatic HEAD & SCALP: n ormocephalic and atraumatic Eye: COMMON NORMALS: conjunctivae normal CONJUNCTIVA: Yes conjunctivae normal Neck/C-Spine: COMMON NORMALS: full ROM and supple Chest: COMMONS NORMALS: normal inspection of the chest Resp: COMMON NORMALS: normal respiratory effort, No retractions, No use of accessory muscles and clear to auscultation bilaterally AUSCULTATION: clear to auscultation bilaterally Cardio: COMMON NORMALS: regular rate, regular rhythm and No murmurs present (Cardio) RATE: regular rate RHYTHM: regular rhythm GI: COMMON NORMALS: Normal to inspection, nondistended, normoactive bowel sounds present, Soft to palpation, non-tender and no masses PALPATION: Yes Soft to palpation Extremity: COMMON NORMALS: normal to inspection and full ROM Neuro: COMMON NORMALS: patient oriented x3, moves all extremities and no focal motor deficits Psych: COMMON NORMALS: mental status grossly normal, Normal thought process present and cooperative THOUGHT PROCESS: Normal thought process present Skin: COMMON NORMALS: no rashes or lesions noted and no wounds GENERAL SKIN EXAM: no rashes or lesions noted Course 2 Vital Signs: Vital signs: Vital Signs Temperature 98.3 F 12/10/24 12:29 Pulse Rate 91 12/10/24 12:29 Respiratory Rate 20 H 12/10/24 12:29 Blood Pressure 120/83 12/10/24 12:29 Pulse Oximetry 97 12/10/24 12:29 Oxygen Delivery Me thod Room Air 12/10/24 12:29 MDM - Abdominal Pain Medical Decision Making Patient presents here with abdominal pain diarrhea vomiting does have colitis on CT no signs of cholecystitis. Blood work here is normal started on Cipro Flagyl pain meds and nausea medicine she is follow-up with her surgeon return if worsening she understands agrees to plan. Medical Records I reviewed the patient's medical records. Lab Data I reviewed the patient's lab results. 12/10/24 13:03 12/10/24 13:03 Labs/Radiology: Radiology Impressions Abdomen/Pelvis CT 12/10/24 14:38 IMPRESSION: 1. Numerous small enhancing mesenteric lymph nodes, greatest distribution RIGHT lower quadrant consistent with mesenteric adenitis most likely. 2. Adjacent submucosal edema involving the ascending colon and hepatic flexure consistent with a mild colitis. 3. The adjacent appendix is normal. No free fluid. 4. Prior gastric bypass. 5. Gallbladder is top normal size diameter but there is no wall thickening or adjacent inflammation. Laboratory Results WBC 5.42 10^3/uL (3.29-11.43) 12/10/24 13:03 RBC 5.05 10^6/uL (3.85-5.65) 12/10/24 13:03 Hgb 12.00 g/dL (11.27-16.99) 12/10/24 13:03 Hct 39.3 % (36-47) 12/10/24 13:03 MCV 77.8 fl (85-98) L 12/10/24 13:03 MCH 23.8 pg (27-33) L 12/10/24 13:03 MCHC 30.5 g/dL (30-55) 12/10/24 13:03 RDW 13.9 % (12.1-15.1) 12/10/24 13:03 Plt Count 357 10^3/cmm (157-399) 12/10/24 13:03 MPV 9.7 fL (7.4-10.4) 12/10/24 13:03 Neut % (Auto) 65.3 % 12/10/24 13:03 Lymph % (Auto) 19.0 % 12/10/24 13:03 Fleming % (Auto) 12.9 % 12/10/24 13:03 Eos % (Auto) 1.8 % 12/10/24 13:03 Baso % (Auto) 0.6 % 12/10/24 13:03 Neut # (Auto) 3.54 10^3/uL (1.8-7.7) 12/10/24 13:03 Lymph # (Auto) 1.0 10^3/uL (0.8-4.8) 12/10/24 13:03 Fleming # (Auto) 0.7 10^3/uL (0.2-0.9) 12/10/24 13:03 Eos # (Auto) 0.1 10^3/uL (0.0-0.8) 12/10/24 13:03 Baso # (Auto) 0.0 10^3/uL (0.0-0.1) 12/10/24 13:03 Nucleated RBC % (auto) 0 % 12/10/24 13:03 Nucleated RBCs # 0.0 /100WBC 12/10/24 13:03 Sodium 139 mmol/L (136-145) 12/10/24 13:03 Potassium 3.5 mmol/L (3.5-5.1) 12/10/24 13:03 Chloride 101 mmol/L (98-107) 12/10/24 13:03 Carbon Dioxide 24 mmol/L (22-29) 12/10/24 13:03 Anion Gap 17.5 (5-19) 12/10/24 13:03 BUN 8 mg/dL (6-20) 12/10/24 13:03 Creatinine 0.5 mg/dL (0.5-0.9) 12/10/24 13:03 GFR Calculation 139.6 mL/min (90-130) H 12/10/24 13:03 Glucose 103 mg/dL (65-115) 12/10/24 13:03 Calculated Osmolality 287 mOsm/kg (285-295) 12/10/24 13:03 Calcium 9.4 mg/dL (8.5-10.5) 12/10/24 13:03 Total Bilirubin 0.2 mg/dL (0.15-1.2) 12/10/24 13:03 AST 17 U/L (0-32) 12/10/24 13:03 ALT 15 U/L (0-33) 12/10/24 13:03 Alkaline Phosphatase 69 U/L (35-105) 12/10/24 13:03 Total Protein 7.1 g/dL (6.6-8.7) 12/10/24 13:03 Albumin 3.9 g/dL (3.5-5.2) 12/10/24 13:03 Globulin 3.2 g/dL (1.3-4.6) 12/10/24 13:03 Lipase 25 U/L (13-60) 12/10/24 13:03 HCG, Qual Negative (Negative) 12/10/24 13:03 Urine Color Yellow (Yellow) 12/10/24 13:30 Urine Appearance Cloudy (CLEAR) A 12/10/24 13:30 Urine pH 6.0 (5-7) 12/10/24 13:30 Ur Specific [place] 1.029 (1.005-1.030) 12/10/24 13:30 Urine Protein Trace (Negative) A 12/10/24 13:30 Urine Glucose (UA) Negative (Normal) 12/10/24 13:30 Urine Ketones 2+ (Negative) H 12/10/24 13:30 Urine Blood 1+ (Negative) A 12/10/24 13:30 Urine Nitrate Negative (Negative) 12/10/24 13:30 Urine Bilirubin Negative (Negative) 12/10/24 13:30 Urine Urobilinogen 1.0 mg/dL (Negative) 12/10/24 13:30 Ur Leukocyte Esterase 2+ (Negative) A 12/10/24 13:30 Urine RBC 6-10 /hpf (0-2) 12/10/24 13:30 Urine WBC 51-100 /hpf (0-5) H 12/10/24 13:30 Ur Squamous Epith Cells 6-10 /hpf (0-5) 12/10/24 13:30 Amorphous Sediment Not Reportable 12/10/24 13:30 Urine Bacteria 1+ /hpf (NONE) H 12/10/24 13:30 Hyaline Casts 3.30 /lpf 12/10/24 13:30 All radiology interpretation(s) finalized by discharge Discharge Plan Discharge Patient Disposition: Home Clinical Impression: Abdominal pain, Colitis Condition: Stable Prescriptions: New hydrocodone-acetaminophen 5-325 mg tablet 1 tab PO Q6H PRN (Reason: pain) Qty: 14 0RF metronidazole 500 mg tablet 500 mg PO Q8H 7 Days Qty: 21 0RF ciprofloxacin HCl [Cipro] 500 mg tablet 500 mg PO BID Qty: 14 0RF ondansetron 4 mg tablet,disintegrating 4 mg PO Q6H PRN (Reason: nausea and vomiting) Qty: 14 0RF Discharge Orders: Discharge ED (Routine); Ordered 12/10/24 Ordered By: Starr Rodney Referrals: Estrella Jones MD [Primary Care Provider, [facility]] - 4-7 days Discharge Diet: Advance as tolerated Discharge Activity: Resume usual activity Patient Instructions: Abdominal Pain (ED), Colitis (ED) Print Language: Faroese Coding Level of Care Code ED Director Of Resource Development for Sara Jenkins
[2024-12-10] MEDS: ondansetron 2 mg/ML SDV 2 mL 4 MG IVP (15:14)
[2024-12-10] MEDS: sodium chloride 0.9% 1,000 ML 999 ML IV (15:14)
[2024-12-10] MEDS: HYDROmorphone 0.5 MG/0.5 ML INJ IVP (15:14)
[2024-12-10] MEDS: iohexol 350 mg/mL 500 mL Btl (per mL) IV (15:19)
[2024-12-10 16:20] VITALS: BP 104/66; PULSE 66; O2SAT 100
[2024-12-10] MEDS: diphenoxylate/atropine Tablet 2 TAB PO (16:26)
== END 2024-12-10 16:20 | disposition home or self-care (01) ==
PROVIDERS: Emergency Provider Emergency Medicine; PCP Family Medicine
DX: R10.9 Unspecified abdominal pain (principal); K52.9 Noninfective gastroenteritis and colitis, unspecified
CPT/HCPCS: 36415; 74177; 80053; 81001; 83690; 84703; 85025; 87086; 96374; 96375; 99285; J1171; J2405; J7030; J9999